=== PATIENT | male | born 1995 | race Caucasian/White ===

== ENCOUNTER 2018-04-24 05:05 | Emergency (ER) | payer OTHER ==
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
== END 2018-04-24 05:50 | disposition home or self-care (01) ==
LOC: VM.ED 05:05
DX: S01.412A Laceration without foreign body of left cheek and temporomandibular area, initial encounter (principal); S00.01XA Abrasion of scalp, initial encounter; Z88.1 Allergy status to other antibiotic agents; Y04.0XXA Assault by unarmed brawl or fight, initial encounter
CPT/HCPCS: 99283